=== PATIENT | male | born 1955 | race Caucasian/White ===

== ENCOUNTER → 2016-06-20 | Outpatient (CLI) | payer MEDICARE, OTHER ==
[2016-06-20 17:53] LABS: CHOLESTEROL/HDL RATIO 4.1
== END | disposition home or self-care (01) ==
LOC: C.LABBFT 13:53
PROVIDERS: ATTEND Nurse Practitioner
DX: I10 Essential (primary) hypertension (principal)

== ENCOUNTER → 2016-08-24 | Outpatient (CLI) | payer MEDICARE, OTHER ==
--- NOTE | 2016-08-24 15:50 | DIAGNOSTIC IMAGING REPORT ---
LEFT PELVIS/UNILATERAL HIP 2-3VIEWS CLINICAL HISTORY: HIP PAIN pain COMPARISON: None. DISCUSSION: Evidence for transverse screws traversing the sacroiliac region. Plate traversing the superior pubic margins. Evidence for prior fractures of the pubic rings. 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 IMPRESSION: 1. Mild degenerative change left hip with no acute process of that structure. 2. Multiple screws and retaining plates traversing old fractures of the bony pelvis. There are 3. 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 This is consistent with a nonunion Electronically signed by: Hamlet Olivo M.D. 08/24/2016 3:49 PM Dictated Date/Time: 08/24/2016 3:47 PM
== END | disposition home or self-care (01) ==
LOC: C.RAD 14:59
PROVIDERS: ATTEND Nurse Practitioner
DX: M25.552 Pain in left hip (principal)

== ENCOUNTER → 2016-10-20 | Outpatient (CLI) | payer MEDICARE, OTHER ==
--- NOTE | 2016-10-20 23:40 | DIAGNOSTIC IMAGING REPORT ---
THREE-PHASE BONE SCAN OF THE PELVIS, HIPS AND KNEES CLINICAL HISTORY: Trauma in 2008 status post multiple surgeries. New onset left pelvic, hip and knee pain. COMPARISON STUDY: Pelvis and hip radiographs June 24, 2016. TECHNIQUE: 27.5 mCi of technetium 99m MDP was injected IV at 5:30 PM on October 20, 2016. Immediately following injection, flow images were obtained. Subsequently, blood pool images were obtained followed by 3 hour delayed phase images of the pelvis, hips and knees. FINDINGS: No significant hyperemia is identified on the blood flow images. Flow appears symmetric. Delayed images demonstrate moderate radiotracer uptake projecting over the medial left femoral condyle. There is mild multifocal uptake within the right knee. Uptake within both hips is symmetric. There is mild symmetric uptake along the sacroiliac joints. IMPRESSION: 1. No significant hyperemia. 2. No evidence for acute fracture within the pelvis, hips or knees. 3. Moderate uptake projecting over the medial left femoral condyle which suggests osteoarthritis. 4. Mild symmetric uptake along the sacroiliac joints which is likely degenerative. Electronically signed by: Mark Kurtz M.D. 10/20/2016 11:38 PM Dictated Date/Time: 10/20/2016 11:30 PM
== END | disposition home or self-care (01) ==
LOC: C.NUCL 16:44
PROVIDERS: ATTEND Internal Medicine
DX: M25.552 Pain in left hip (principal); M25.562 Pain in left knee